=== PATIENT | female | born 1965 | race Caucasian/White ===

== ENCOUNTER 2016-09-15 10:43 | Emergency (ER) | payer OTHER ==
[~2016-09-15] VITALS: Ht 157.5 cm; Wt 81.6 kg
[~2016-09-15 10:43] MED LIST: IBUPROFEN800 M1 PO; MEPERIDINE HCL50 M1 PO; ONDANSETRON ODT4 M1 PO; TAMOXIFEN CITRA20 M1 PO
--- NOTE | 2016-09-15 11:38 | ED UPPER/LOWER EXTREMITY COMPL ---
History of Present Illness General Chief Complaint: Lower Extremity Injury Stated Complaint: L LEG SWELLING, BRUISING, FALL LAST SATURDAY Source: patient Exam Limitations: no limitations Vital Signs & Intake/Output Vital Signs & Intake/Output Vital Signs Date Time Temp Pulse Resp B/P B/P Pulse O2 O2 Flow FiO2 Mean Ox Delivery Rate 09/15 1306 97.2 69 18 111/58 97 Room Air 09/15 1105 96.6 93 18 153/87 96 Room Air Allergies Coded Allergies: oxycodone (From Percocet) (Intermediate, CONSTIPATION 09/15/16) Reconcile Medications Tamoxifen Citrate 20 MG TABLET 1 TAB PO DAILY BREAST CANCER (Reported) Triage Note: TO ED COMPLAINING OF L SIDED KNEE PAIN S/P FALL ON 09/09. MODERATE SWELLING AND BRUISING NOTED TO LOWER EXTREMITY INTO ANKLE. OFFERED AND DECLINED MEDS IN TRIAGE. AMB WITH STEADY GAIT. Triage Nurses Notes Reviewed? yes Onset: Gradual Duration: week(s): (1) Timing: no prior history Severity: moderate Severity Numbers: 10 Pain/Injury Location: Left: Knee. Method of Injury: fall Modifying Factors: Improves With: immobilization. Worsens With: movement. HPI: Patient is a 50-year-old female presenting to the emergency department with chief complaint of left knee pain worsening over the past one week. One week ago she fell and landed directly on her left knee. She was picking up her granddaughter when this happened. She noticed a small amount of pain initially but nothing significant. She slowlyincreasing bruising and swelling since she decided come in for evaluation today. No calf pain. Denies numbness or tingling. No other injuries. Denies head injury or loss of consciousness. Past History Travel History Traveled to [place] past 21 day No Medical History Any Pertinent Medical History? see below for history Neurological: NONE EENT: NONE Cardiovascular: NONE Respiratory: NONE Gastrointestinal: NONE Hepatic: NONE Renal: NONE Musculoskeletal: NONE Psychiatric: NONE Endocrine: NONE Blood Disorders: NONE Cancer(s): breast cancer PALEOLOGIST/Reproductive: NONE History of MRSA: No History of VRE: No History of CDIFF: No Surgical History Surgical History: masectomy, tubal ligation, laparoscopy Psychosocial History Who do you live with Family Services at Home None What is your primary language Sinhala Tobacco Use: Quit >30 days ago ETOH Use: occasional use Illicit Drug Use: denies illicit drug use Family History Hx Contributory? No Review of Systems Review of Systems Constitutional: Reports: no symptoms. Comments Review of systems: See HPI, All other systems negative. Constitutional, no chills fever or weight loss HEENT: No visual changes no sore throat no congestion Cardiovascular: No chest pain ,palpitation Skin, no jaundice no rashes Respiratory: No dyspnea cough sputum or hemoptysis GI: No nausea no vomiting : No dysuria No hematuria Muscle skeletal: no back pain, no neck pain, Neurologic: No numbness no confusion Psych: No stress anxiety Immunology: No splenectomy or history of AIDS Physical Exam Physical Exam General Appearance: well developed/nourished, no apparent distress, alert, awake , comfortable Comments: Well-developed well-nourished person in no acute distress HEENT: Pupils equally round and reactive to light and accommodation. Nose is atraumatic. Neck: normal inspection Cardiovascular: Regular rate and rhythms no murmurs rubs or gallops, normal JVP Respiratory: Chest nontender. No respiratory distress.breath sounds clear to auscultation bilaterally Extremity: there is mild erythema with ecchyosis over the left patella, AND DOWN LEFT FERNANDEZ, varus and valgus test negative, neg anterior and posterior test negative, 5/5 strength in upper ext and lower ext. no calf pain to palpation bilaterally. full rom of left patella, full rom of left ankle and foot. pedal pulses 2 plus intac tin lower ext bilaterally. Neuro: Alert oriented x3, motor sensory normal in lower ext. Skin: No appreciable rash on exposed skin, skin is warm and dry. Psych: Mood and affect is normal, memory and judgment is normal. Progress Differential Diagnosis: contusion, dislocation, fracture, sprain, tendon injury Plan of Care: Orders Procedure Date/time Status Durable Medical Equipment 09/15 1308 Active Patient declined pain medication on arrival. She'll call for x-ray to rule out fracture. (RICH JACKSON,SMITHA) Diagnostic Imaging: Viewed by Me: Radiology Read. Discussed w/RAD: Radiology Read. Radiology Impression: PATIENT: DMITRY LAKE PRESENT AGE: 50 PATIENT ACCOUNT NO: [id number] : 69 LOCATION: [facility] ORDERING PHYSICIAN: SMITHA JACKSON SERVICE DATE: 09/15/16113 EXAM TYPE: RAD - XRY-KNEE COMPLETE LEFT EXAMINATION: XR KNEE, LEFT CLINICAL INFORMATION: Pain and bruising after fall. COMPARISON: None TECHNIQUE: Four views of the left knee. FINDINGS: Mild soft tissue swelling in the prepatellar/ infrapatellar region. Otherwise, soft tissues are unremarkable. No joint effusion. Bones have normal alignment and the joint spaces are well-preserved. IMPRESSION: 1. No acute fracture or malalignment at the left knee. 2. Mild posttraumatic soft tissue swelling in the peripatellar region. Departure Departure Time of Disposition: 130 Disposition: HOME OR SELF CARE Condition: Stable Clinical Impression Primary Impression: Knee contusion Qualifiers: Encounter type: initial encounter Laterality: left Qualified Code: S80.02XA - Contusion of left knee, initial encounter Referrals: JURGEN CLARK,ELLIOTT Kong (PCP/Family) BRANDY CLARK,EDWIN Davis Additional Instructions: Follow-up with orthopedics if symptoms persist. Rest ice and elevate as much as possible. Wear knee immobilizer for support. Return for worsening symptoms or concerns. Departure Forms: Customer Survey General Discharge Information Procedures Splinting Location: LEFT KNEE Manual Alignment Performed: No Pre-Made Type: knee imobilizer Splint: KNEE IMMOBILIZER Splint Applied By: splint applied by me Pre-Proc Neuro Vasc Exam: normal Post-Proc Neuro Vasc Exam: normal Progress: TOLERATED PROCEDURE WELL
--- NOTE | 2016-09-15 13:03 | RADIOLOGY REPORT ---
EXAMINATION: XR KNEE, LEFT CLINICAL INFORMATION: Pain and bruising after fall. COMPARISON: None TECHNIQUE: Four views of the left knee. FINDINGS: Mild soft tissue swelling in the prepatellar/infrapatellar region. Otherwise, soft tissues are unremarkable. No joint effusion. Bones have normal alignment and the joint spaces are well-preserved. IMPRESSION: 1. No acute fracture or malalignment at the left knee. 2. Mild posttraumatic soft tissue swelling in the peripatellar region.
[2016-09-15 13:06] VITALS: BP 111/58
== END 2016-09-15 13:24 ==
LOC: ERH 10:43
DX: S80.02XA Contusion of left knee, initial encounter (principal); W19.XXXA Unspecified fall, initial encounter; Y93.9 Activity, unspecified; Y92.9 Unspecified place or not applicable
CPT/HCPCS: 73562-LT